=== PATIENT | male | born 2000 | race African-American/Black ===

== ENCOUNTER 2020-10-01 09:46 | Emergency (ER) | payer SELFPAY ==
[~2020-10-01] VITALS: Ht 182.9 cm; Wt 80.0 kg
[2020-10-01 10:00] VITALS: BP 146/89
--- NOTE | 2020-10-01 10:08 | NUR ---
holli aware of bgl givne juice, snacks, ordered bfast tray. plan for ct head. pt and dad aware, agree. vss. call [email or web address]
[2020-10-01 10:29] LABS: BASOPHILS % (AUTO) 0 % (0-1); EOSINOPHILS % (AUTO) 1 % (1-7); LYMPHOCYTES % (AUTO) 20 % (22-44); MEAN CORPUSCULAR HEMOGLOBIN 30.9 pg (27.5-34.5); MEAN CORPUSCULAR HGB CONC 33.4 g/dL (33.2-36.2); MEAN PLATELET VOLUME 8.5 fL (7.4-10.4); MONOCYTES % (AUTO) 3 % (2-9); NEUTROPHILS % (AUTO) 75 % (42-75); PLATELET COUNT 215 x10^3/uL (130-400); RED BLOOD COUNT 5.11 x10^6/uL (4.38-5.82); RED CELL DISTRIBUTION WIDTH 14.2 % (9.4-14.8)
[2020-10-01 10:30] LABS: MD NO
[2020-10-01 10:43] LABS: ANION GAP 3 mmol/L (5-15); CALCIUM 9.4 mg/dL (8.5-10.1); CHLORIDE 108 mmol/L (98-107)
[2020-10-01 10:44] LABS: ALANINE AMINOTRANSFERASE 21 U/L (12-78); ALBUMIN 3.9 g/dL (3.4-5.0); ALKALINE PHOSPHATASE 52 U/L (45-117); BILIRUBIN,TOTAL 0.9 mg/dL (0.2-1.0); CREATININE 1.15 mg/dL (0.7-1.3); TOTAL PROTEIN 7.6 g/dL (6.4-8.2)
--- NOTE | 2020-10-01 10:49 | NUR ---
to ct. as
== END 2020-10-01 12:13 | disposition home or self-care (01) ==
LOC: ED 11:33
DX: R56.9 Unspecified convulsions (principal); E10.649 Type 1 diabetes mellitus with hypoglycemia without coma; R55 Syncope and collapse; Z79.4 Long term (current) use of insulin
CPT/HCPCS: 70450; 80053; 82962; 85025; 99284